=== PATIENT | female | born 1965 | race Caucasian/White ===

== ENCOUNTER 2023-09-27 14:13 | Emergency (ER) | payer OTHER, SELFPAY ==
[2023-09-27 14:16] VITALS: BP 163/64
--- NOTE | 2023-09-27 16:02 | ED.GENMED ---
History of Present Illness
General
Chief Complaint: Musculo-Skeletal Complaint
Source: patient
Exam Limitations: none
Time Seen by Provider: 09/27/23 15:24
Travel History
Have you had any contact with someone who has COVID-19?: No
Do you have any symptoms of coronavirus? Fever > 100 degrees, chills, cough, shortness of breath, sore throat, loss of taste or smell, muscle aches, or headache?: No
History of Present Illness
History of Present Illness:
Patient was playing pickle ball and fell backwards landing on her left wrist. Hit her buttock to may have hit her head briefly but no headache no LOC no buttock pain at this time. Only complaining of wrist pain.
Past History
Past History
ED Past Medical History: Hypothyroidism
ED Past Surgical History: Orthopedic (Left foot surgery)
Social History
Tobacco: Non-smoker
Personal:
Living: with family
Review of Systems
Review of Systems
All Other Systems: Not applicable
Phy Exam
Physical Exam
Physical Exam:
GENERAL: Alert and oriented. No distress. No scalp trauma
EYE: Orbits normal.
NECK: Supple, nontender
NEUROLOGICAL: Alert and oriented , grossly non-focal
SKIN: Warm and dry, no rash or lesion, no discoloration, skin intact.
MUSCULOSKELETAL: No edema,no deformity.Good color. Mild deformity to the left wrist. No open fracture. Significant tenderness to the distal radius. Elbow forearm proximally negative. Good distal pulses and color
PSYCH: Normal and appropriate interaction.
Course
Orders/Labs/Results
Orders:
Orders
09/27/23 14:19
Wrist, Left 3 Views CR [CR Wrist - Left Min 3 Views] Urgent
Comment:
Reason For Exam: fall, pain
09/27/23 16:01
Sling Left-Treatment ONCE
Splints/Slings/Crut- Treatment ONCE
Ibuprofen [Motrin] 600 mg PO NOW STA
Vital Signs
Initial and Last Documented VS:
Initial Vital Signs
Temp Pulse Resp BP Pulse Ox
98 F 79 18 163/64 94
09/27/23 14:16 09/27/23 14:16 09/27/23 14:16 09/27/23 14:16 09/27/23 14:16
Last Documented Vital Signs
Temp Pulse Resp BP Pulse Ox
98 F 81 18 144/83 94
09/27/23 14:16 09/27/23 16:23 09/27/23 14:16 09/27/23 16:23 09/27/23 14:16
*Radiology
Radiology exam reviewed: radiology read reviewed (Fracture distal radius and ulna. Comminuted with some displaced)
*Pulse Oximetry
Patient hypoxic: no
*Critical Care Note
Total Time (30-74mins, 75-104mins- exclusive of procedures): Not Applicable
Update Note
Update Note:
Sent to orthopedics. Splint and follow-up
ED Attending Note
-
Portions of this chart may have been created with voice recognition software.� Occasional wrong word or��sound alike� substitutions may have occurred due to the inherent limitations of voice recognition software.
Discharge Plan
Departure
Patient Disposition: Home (Routine Discharge)
Date of Disposition: 09/27/23
Time of Disposition: 16:04
Patient with high blood pressure during this ER visit?: Yes
Discharge Problem:
Distal radius/ulna fracture
Instructions: Wrist Fracture (DC), BLOOD PRESSURE
Prescriptions:
No Action
levothyroxine 50 MCG tablet
50 mcg PO DAILY
Referrals:
Kobe Duncan MD [Active] - Follow up in 2-3 days
Molly Lord CRNP [Family Provider] -
Activity Restrictions/Additional Instructions:
Advil or Motrin for pain
You can also take Tylenol
Call the orthopedist tomorrow. You should see either Dr. Peralta or Enedelia
Interventions
Interventions:
*Risk Screen - Suicide Last Done: 09/27/23 14:16
*General Assessment Last Done: 09/27/23 14:16
*Neglect/Abuse Screening Last Done: 09/27/23 14:16
*Nursing Disposition Last Done: 09/27/23 16:23
ED-Musculoskeletal Assessment Last Done: 09/27/23 15:19
Discharge Date and Time
Discharge Date/Time: 09/27/23 16:24
[2023-09-27] MEDS: MOTRIN 600 MG PO (16:14)
[2023-09-27 16:22] VITALS: BP 144/83
[2023-09-27 16:23] VITALS: BP 144/83
== END 2023-09-27 16:24 | disposition home or self-care (01) ==
LOC: EMR 14:13
PROVIDERS: EMERGENCY PHYSICIAN Emergency Medicine; FAMILY PHYSICIAN Nurse Practitioner Adult Health
DX: S52.502A Unspecified fracture of the lower end of left radius, initial encounter for closed fracture (principal); W19.XXXA Unspecified fall, initial encounter; E03.9 Hypothyroidism, unspecified
CPT/HCPCS: 99283; 73110

== ENCOUNTER → 2023-09-29 08:24 | Outpatient (REF) | payer OTHER, SELFPAY ==
[2023-09-29 09:35] LABS: Blood Urea Nitrogen 11 mg/dl (7-17); Calcium 9.1 mg/dl (8.4-10.2); Carbon Dioxide 28 mmol/L (22-30); Chloride 104 mmol/L (98-107); Glucose 123 mg/dl (70-99); Potassium 3.8 mmol/L (3.5-5.1); Sodium 140 mmol/L (135-145); eGFR > 60.00
== END ==
LOC: REG 08:24
PROVIDERS: ATTENDING PHYSICIAN Orthopaedic Surgery; FAMILY PHYSICIAN Nurse Practitioner Adult Health
DX: Z01.818 Encounter for other preprocedural examination (principal)
CPT/HCPCS: 36415; 80048; 93005

== ENCOUNTER → 2023-12-01 11:03 | Outpatient (REF) | payer OTHER, SELFPAY | LOC: WDC 11:03 | PROVIDERS: ATTENDING PHYSICIAN Nurse Practitioner Adult Health | DX: Z12.31 Encounter for screening mammogram for malignant neoplasm of breast (principal) | CPT/HCPCS: 77063; 77067 ==

== ENCOUNTER → 2024-04-12 09:20 | Outpatient (REF) | payer OTHER, SELFPAY | LOC: RAD 09:20 | PROVIDERS: ATTENDING PHYSICIAN Nurse Practitioner Adult Health | DX: R07.81 Pleurodynia (principal) | CPT/HCPCS: 71101 ==

== ENCOUNTER → 2024-12-01 12:19 | Outpatient (REF) | payer OTHER, SELFPAY | LOC: WDC 12:19 | PROVIDERS: ATTENDING PHYSICIAN Nurse Practitioner Family; FAMILY PHYSICIAN Nurse Practitioner Adult Health | DX: Z12.31 Encounter for screening mammogram for malignant neoplasm of breast (principal) | CPT/HCPCS: 77063; 77067 ==